=== PATIENT | female | born 2000 | race Caucasian/White ===

== ENCOUNTER 2020-01-02 22:00 | Outpatient (REF) | payer SELFPAY | END 2020-01-03 02:00 | disposition home or self-care (01) | LOC: EDREF 22:00 | DX: Z04.41 Encounter for examination and observation following alleged adult rape (principal) ==

== ENCOUNTER 2022-01-04 22:06 | Emergency (ER) | payer MEDICARE, MEDICAID, SELFPAY ==
[2022-01-04 22:06] VITALS: BP 104/74; PULSE 93; RESP 18; TEMP 36.2; O2SAT 98; BMI 31.6
[2022-01-04 22:08] VITALS: BP 104/74; PULSE 94; RESP 18; TEMP 37.1; O2SAT 98; BMI 31.6
--- NOTE | 2022-01-04 22:30 | EX.ED.DYSGE1 ---
HPI History of Present Illness Chief Complaint: General Illness Informant: patient Onset/Context/Timing Onset: Today Context: Gradual Onset Timing: Continuous Worsened by: Nothing Relieved by: Nothing Narrative Narrative: Patient presents with dizziness that began today. Patient states she was seen yesterday at another facility and was diagnosed with a urinary tract infection. Patient states she was given a prescription for amoxicillin. Patient states she took a dose of that today and started having some nausea and vomiting after that. Patient admits to some dizziness. Patient states she is unable to describe what her dizziness feels like. Patient states nothing makes it better and nothing makes it worse. Patient still has some dysuria. Patient denies any fevers or chills. Patient denies any headaches. [facility] Medical History ADHD (attention deficit hyperactivity disorder) Autism Hypotension Home Medications dextroamphetamine-amphetamine ER 50 mg capsule,3 bead,ext release 24hr 50 mg PO DAILY 12/09/20 [History Last Taken Unknown] escitalopram oxalate 10 mg tablet 10 mg PO DAILY 12/09/20 [History Last Taken Unknown] escitalopram oxalate 20 mg tablet 20 mg PO DAILY 12/09/20 [History Last Taken Unknown] guanfacine 4 mg tablet,extended release 24 hr 4 mg PO DAILY 12/09/20 [History Last Taken Unknown] ibuprofen 200 mg tablet 400 mg PO Q6H PRN tab 12/09/20 [History Last Taken Unknown] metoprolol tartrate 100 mg tablet 200 mg PO DAILY tab 12/09/20 [History Last Taken Unknown] perphenazine 8 mg tablet 4 mg PO QHS tab 12/09/20 [History Last Taken Unknown] trazodone 50 mg tablet 150 mg PO QHS tab 12/09/20 [History Last Taken Unknown] cephalexin 500 mg PO Q6 #12 capsule 01/04/22 [Rx Last Taken Unknown] Allergy/AdvReac Type Severity Reaction Status Date / Time No Known Allergies Allergy Verified 01/04/22 22:13 Family History (Updated 12/09/20 @ 08:59 by Sonam Morrell) Mother Hypertension Grandmother CVA (cerebral vascular accident) Diabetes Thyroid disorder Grandfather Hypertension Father Hypertension Diabetes Myocardial infarction Surgical History History of hernia repair Social History Smoking Status: Never smoker alcohol intake: never substance use type: does not use ROS ROS ED Constitutional Constitutional ED: Denies chills or fever(s) Eyes Eyes: Denies blurry vision or change in vision ENT ENT ED: Denies rhinorrhea or sore throat Cardiovascular Cardiovascular: Denies chest pain or palpitations Respiratory/Chest Respiratory/Chest: Denies cough or dyspnea Gastrointestinal Gastrointestinal: Reports nausea and vomiting Genitourinary Genitourinary ED: Reports dysuria; Denies hematuria Musculoskeletal Musculoskeletal: Denies back pain or neck pain Integumentary Denies abscess or rash Neurologic Neurologic: Denies headache(s) or weakness Allergic/Immunologic Allergic/Immunologic ED: Denies mouth swelling or urticaria EXAM Physical Exam Const Vital Signs: 01/04/22 22:06 01/04/22 22:08 01/04/22 22:13 Temperature 97.1 F L 98.7 F Temperature Source Temporal Temporal Pulse Rate 93 94 Pulse Rate [Lying] Pulse Rate [Sitting (for 1 minute prior to obtaining)] Pulse Rate [Standing (for 1 minute prior to obtaining)] Respiratory Rate 18 18 Respiratory Effort Normal Respiratory Pattern Normal Blood Pressure 104/74 104/74 Blood Pressure [Lying] Blood Pressure [Sitting (for 1 minute prior to obtaining)] Blood Pressure [Standing (for 1 minute prior to obtaining)] Blood Pressure Mean 84 84 Blood Pressure Mean [Lying] Blood Pressure Mean [Sitting (for 1 minute prior to obtaining)] Blood Pressure Mean [Standing (for 1 minute prior to obtaining)] Pulse Ox 98 98 Oxygen Delivery Method Room Air Room Air 01/04/22 23:05 Temperature Temperature Source Pulse Rate Pulse Rate [Lying] 81 Pulse Rate [Sitting (for 1 minute prior to obtaining)] 82 Pulse Rate [Standing (for 1 minute prior to obtaining)] 88 Respiratory Rate Respiratory Effort Respiratory Pattern Blood Pressure Blood Pressure [Lying] 128/108 H Blood Pressure [Sitting (for 1 minute prior to obtaining)] 108/73 Blood Pressure [Standing (for 1 minute prior to obtaining)] 103/82 H Blood Pressure Mean Blood Pressure Mean [Lying] 114 Blood Pressure Mean [Sitting (for 1 minute prior to obtaining)] 84 Blood Pressure Mean [Standing (for 1 minute prior to obtaining)] 89 Pulse Ox Oxygen Delivery Method Positive well nourished and well developed General Appearance ED: well developed HEENT Reports moist mucous membranes Neck supple and no JVD Resp normal respiratory effort and clear to auscultation bilaterally Cardio regular rate, regular rhythm and no murmurs GI normal to inspection, nondistended, normoactive bowel sounds Palpation: soft and tender suprapubic (Mild); Negative for guarding or rebound tenderness present Extremity normal to inspection General Extremety ED: Negative for edema or tenderness General Extremity: Negative for edema Neuro oriented x3, CN's II-XII intact bilaterally and no sensory deficits noted Sensorium / Orientation: alert Motor Exam: strength 5/5 throughout Psych mental status grossly normal Skin no rashes or lesions noted MDM MDM MDM Narrative Medical decision making narrative: Patient was given a dose of Zofran here. CBC was within normal limits. Basic metabolic profile showed a mild hypokalemia of 3.3. Urinalysis shows a leukocyte esterases of 100 with 5-10 white blood cells and 5-10 epithelial cells. There is 2+ bacteria. Urine culture was ordered. Patient is feeling better on reevaluation. Patient was given a prescription for Keflex. Patient was instructed to stop the amoxicillin. Patient was instructed to follow-up with her primary care physician in 5 to 7 days. Patient understood and was agreeable with the plan. All questions were answered. Lab Data Attestation: I reviewed the patient's lab results. Labs: Laboratory Results - last 24 hr 01/04/22 01/04/22 01/04/22 22:54 22:55 22:55 WBC 10.0 RBC 4.63 Hgb 13.9 Hct 41.1 MCV 88.8 MCH 30.0 MCHC 33.8 RDW Std Deviation 38.6 RDW Coeff of [place] 12.0 Plt Count 232 MPV 9.3 Immature Gran % (Auto) 0.200 Neut % (Auto) 69.1 Lymph % (Auto) 23.9 [place] % (Auto) 6.0 Eos % (Auto) 0.6 Baso % (Auto) 0.2 Absolute Neuts (auto) 6.9 Absolute Lymphs (auto) 2.38 Nucleated RBC % 0 Sodium 137 Potassium 3.3 L Chloride 103 Carbon Dioxide 29.0 Anion Gap 5 BUN 13 Creatinine 0.86 Estim Creat Clear Calc 115.33 Est GFR (MDRD) Af Amer 106 Est GFR (MDRD) Non-Af 88 BUN/Creatinine Ratio 15.2 Glucose 101 Calcium 8.8 Urine Color Yellow Urine Clarity Sl. Cloudy Urine pH 5.0 Ur Specific [place] 1.025 Urine Protein 15 H Urine Glucose (UA) Normal Urine Ketones 5 H Urine Occult Blood Negative Urine Nitrite Negative Urine Bilirubin 1 H Urine Urobilinogen 4 H Ur Leukocyte Esterase 100 H Urine RBC 0-5 SEEN Urine WBC 5-10 SEEN Ur Squamous Epith Cells 5-10 SEEN Urine Bacteria 2+ Urine Mucus 1+ Discharge Plan Triage Chief Complaint: General Illness Other Complaint: Dizziness ED Provider: Michael Mejias Dx/Rx/DC Orders Clinical Impression: Dizziness of unknown cause, Urinary tract infection Instructions: ED Dizziness, Uncertain Cause, ED CYSTITIS Female Adult Prescriptions: New cephalexin [cephalexin] 500 MG capsule 500 mg PO Q6 Qty: 12 RF: 0 Discontinued amoxicillin 875 mg tablet RF: 0 No Action escitalopram oxalate 10 mg tablet 10 mg PO DAILY RF: 0 perphenazine 8 mg tablet 4 mg PO QHS RF: 0 metoprolol tartrate 100 mg tablet 200 mg PO DAILY RF: 0 guanfacine [Intuniv ER] 4 mg tablet extended release 24 hr 4 mg PO DAILY RF: 0 trazodone 50 mg tablet 150 mg PO QHS RF: 0 Mydayis 50 mg capsule, ER triphasic 24 hr 50 mg PO DAILY RF: 0 escitalopram oxalate 20 mg tablet 20 mg PO DAILY RF: 0 ibuprofen 200 mg tablet 400 mg PO Q6H PRNRF: 0 Primary Care Provider: NOT,DEFINED Referrals: NOT,DEFINED [Primary Care Provider] - 5-7 Days Disposition Disposition: Home, Self Care
[2022-01-04 22:59] LABS: Absolute Lymphocyte Count 2.38 X10^3/uL (0.83-4.51); Absolute Neutrophil Count 6.9 X10^3/uL (2.0-7.7); Basophil# 0.02 X10^3/uL; Basophil% 0.2 % (0-1); Eosinophil# 0.06 X10^3/uL; Eosinophils% 0.6 % (0-5); Hematocrit 41.1 % (37-47); Hemoglobin 13.9 g/dL (12.0-15.0); Lymphocyte # 2.38 X10^3/ul (0.83-4.51); Lymphocyte % 23.9 % (19-41); Mean Corp Hgb Conc 33.8 g/dL (32-36); Mean Corpuscular Volume 88.8 fL (81-99); Mean Platelet Vol. 9.3 fl (6.2-12.0); NRBC Flagged by Analyzer 0 % (0-5); Neutrophil # 6.89 X10^3/uL (2.7-7.7); Neutrophil % 69.1 % (47-70); Platelet Count 232 K/mm3 (150-450); RBC Distribution Width SD 38.6 fl (35.1-43.9); Red Blood Count 4.63 M/mm3 (4.2-5.4)
[2022-01-04] MEDS: Ondansetron 4 MG/2 ML Vial IV (23:02)
[2022-01-04 23:05] VITALS: BP 103/82; BP 108/73; BP 128/108; PULSE 81; PULSE 82; PULSE 88
[2022-01-04 23:08] LABS: Color, Urine Yellow (Yellow); Glucose, Dipstick Normal (Normal); Ketone-Dipstick 5 mg/dl (Negative); Leukocyte Esterase-Dipstick 100 /ul (Negative); Nitrite-Dipstick Negative (Negative); Occult Blood-Urine Negative /ul (Negative); Protein-Dipstick 15 mg/dl (Negative); Specific Gravity, Urine 1.025 (1.002-1.030); Urine Clarity Sl. Cloudy (Clear); Urine Urobilinogen 4 mg/dl (Normal)
[2022-01-04 23:11] LABS: Urine Bilirubin Dipstick 1 mg/dL (Negative)
[2022-01-04 23:11] LABS: Anion Gap 5 (5-15); BUN 13 mg/dL (7-18); BUN/Creat Ratio 15.2 RATIO (10-20); Calcium,Total 8.8 mg/dL (8.5-10.1); Chloride 103 mmol/L (98-107); Creatinine, Serum 0.86 mg/dL (0.55-1.02); EST Glomerular Filtration Rate 88 mL/min (>60); Est Glom Filt Rate - Afr Amer 106 mL/min (>60); Estimated Creatinine Clearance 115.33 ml/min; Glucose 101 mg/dL (74-106); Potassium 3.3 mmol/L (3.5-5.1); Sodium Level 137 mmol/L (136-145)
[2022-01-04 23:19] LABS: Bacteria 2+ /hpf (None Seen); Red Blood Cells-Urine 0-5 SEEN /hpf (0-5); Squamous Epithelial Cells - UA 5-10 SEEN /hpf (5-10); White Blood Cells 5-10 SEEN /hpf (0-5)
[2022-01-04 23:20] LABS: Mucous, Urine 1+ /hpf (<or=2+)
== END 2022-01-04 23:40 | disposition home or self-care (01) ==
PROVIDERS: Emergency Provider Emergency Medicine; Visit Provider Emergency Medicine
DX: R42 Dizziness and giddiness (principal); E87.6 Hypokalemia; F84.0 Autistic disorder; F90.9 Attention-deficit hyperactivity disorder, unspecified type; Z79.899 Other long term (current) drug therapy; N39.0 Urinary tract infection, site not specified
CPT/HCPCS: 80048; 81001; 85025; 87086; 87088; 96374; 99285; A4216; J2405

== ENCOUNTER 2022-01-12 17:42 | Emergency (ER) | payer MEDICARE, MEDICAID, SELFPAY ==
[2022-01-12 17:44] VITALS: BP 107/55; PULSE 106; RESP 17; TEMP 36.9; O2SAT 96; BMI 29.8
[2022-01-12 17:51] VITALS: BP 107/55; PULSE 102; RESP 17; TEMP 36.9; O2SAT 96
[2022-01-12 18:22] LABS: Bacteria 0 SEEN /hpf (None Seen); Red Blood Cells-Urine 0 SEEN /hpf (0-5)
[2022-01-12 18:23] LABS: Color, Urine Yellow (Yellow); Glucose, Dipstick Normal (Normal); Ketone-Dipstick Negative (Negative); Leukocyte Esterase-Dipstick 100 /ul (Negative); Nitrite-Dipstick Negative (Negative); Occult Blood-Urine Negative /ul (Negative); Protein-Dipstick 15 mg/dl (Negative); Specific Gravity, Urine 1.025 (1.002-1.030); Urine Bilirubin Dipstick Negative (Negative); Urine Clarity Clear (Clear); Urine Urobilinogen Normal (Normal)
[2022-01-12 18:31] LABS: Mucous, Urine 2+ /hpf (<or=2+); Squamous Epithelial Cells - UA 0-5 SEEN /hpf (5-10); White Blood Cells 0-5 SEEN /hpf (0-5)
--- NOTE | 2022-01-12 18:42 | ED.VIS.FEGU ---
HPI HPI - Female History of Present Illness Chief Complaint: Complaint Informant: patient Narrative Narrative: Autistic patient presents by herself via EMS for dysuria, suprapubic pressure, urinary frequency for the past month. States she has been other hospitals but does not have any antibiotics. Also states for the last few days both of her ears have had muffled hearing and occasional earaches. She uses Flonase daily. She denies any fevers, chills, hematuria, , vaginal complaints, syncope or near syncope. PFSH PFS Medical History (Updated 01/12/22 @ 18:[address] Clement Salcedo MD) ADHD (attention deficit hyperactivity disorder) Autism Hypotension Oppositional defiant disorder Home Medications dextroamphetamine-amphetamine ER 50 mg capsule,3 bead,ext release 24hr 50 mg PO DAILY 12/09/20 [History Last Taken Unknown] escitalopram oxalate 20 mg tablet 20 mg PO DAILY 12/09/20 [History Last Taken Unknown] guanfacine 4 mg tablet,extended release 24 hr 4 mg PO DAILY 12/09/20 [History Last Taken Unknown] trazodone 50 mg tablet 150 mg PO QHS tab 12/09/20 [History Last Taken Unknown] buspirone 30 mg PO DAILY 01/12/22 [History Last Taken Unknown] Allergy/AdvReac Type Severity Reaction Status Date / Time No Known Allergies Allergy Verified 01/12/22 17:42 Family History (Updated 12/09/20 @ 08:59 by Sonam Morrell) Mother Hypertension Grandmother CVA (cerebral vascular accident) Diabetes Thyroid disorder Grandfather Hypertension Father Hypertension Diabetes Myocardial infarction Surgical History History of hernia repair Social History Smoking Status: Never smoker alcohol intake: never substance use type: does not use ROS ROS ED Constitutional Constitutional ED: Denies chills or fever(s) Eyes Eyes: Denies change in vision or diplopia ENT ENT ED: Reports as per HPI and ear pain bilateral; Denies rhinorrhea or sore throat Cardiovascular Cardiovascular: Denies chest pain or palpitations Respiratory/Chest Respiratory/Chest: Denies cough or dyspnea Gastrointestinal Gastrointestinal: Reports abdominal pain; Denies diarrhea, nausea or vomiting Genitourinary Genitourinary ED: Reports dysuria, urinary frequency and urinary urgency; Denies hematuria Musculoskeletal Musculoskeletal: Denies back pain or neck pain Integumentary Denies abscess or rash Neurologic Neurologic: Denies headache(s), paresthesias or weakness Psychiatric Psychiatric: Denies anxiety or suicidal thoughts EXAM Physical Exam Const Vital Signs: 01/12/22 17:44 01/12/22 17:51 Temperature 98.4 F 98.4 F Temperature Source Oral Oral Pulse Rate 106 H 102 H Respiratory Rate 17 17 Blood Pressure 107/55 L 107/55 L Blood Pressure Mean 72 72 Pulse Ox 96 96 Oxygen Delivery Method Room Air Room Air Positive well nourished and well developed General Appearance ED: well developed and NAD HEENT Reports EAC's normal, TM's clear, TM's normal bilaterally and moist mucous membranes HEENT Narrative: No sinus tenderness. No nasal turbinate edema or purulent discharge. Posterior pharynx and dentition normal. Tongue normal. normocephalic and atraumatic Tympanic Membrane ED: Yes TM's clear Eyes PERRL and EOMs intact bilaterally Neck full ROM and supple Resp normal respiratory effort and clear to auscultation bilaterally Cardio regular rate, regular rhythm and no murmurs GI non-distended GI Narrative: Very mildly tender suprapubic area only. Auscultation: normoactive bowel sounds Palpation: soft Back/Spine no CVA tenderness General Back: other FROM Extremity normal to inspection General Extremety ED: Negative for edema, pulses abnormal or tenderness General Extremity: Negative for edema or pulses abnormal Neuro oriented x3, CN's II-XII intact bilaterally and no sensory deficits noted Sensorium / Orientation: awake and alert Motor Exam: strength 5/5 throughout Skin no rashes or lesions noted and no wounds MDM MDM MDM Narrative Medical decision making narrative: Urine showing leukocyte esterase and no bacteria, no nitrite. Family called and said that she already was at another hospital and had a prescription sent for antibiotics to [facility] that she has not picked up yet. Upon looking, the patient has 2 prescriptions at 2 different pharmacies, 1 for amoxicillin and 1 for cephalexin, I recommend that she choose the one for her cephalexin, and since it is only for 3 days which is less than recommended, I am giving her some antibiotics here today. Her ear did not appear to be infected, she was given a dose of a decongestant here prior to discharge. Lab Data Attestation: I reviewed the patient's lab results. Labs: Laboratory Results - last 24 hr 01/12/22 18:03 Urine Color Yellow Urine Clarity Clear Urine pH 5.0 Ur Specific [place] 1.025 Urine Protein 15 H Urine Glucose (UA) Normal Urine Ketones Negative Urine Occult Blood Negative Urine Nitrite Negative Urine Bilirubin Negative Urine Urobilinogen Normal Ur Leukocyte Esterase 100 H Urine RBC 0 SEEN Urine WBC 0-5 SEEN Ur Squamous Epith Cells 0-5 SEEN Urine Bacteria 0 SEEN Urine Mucus 2+ Discharge Plan Triage Chief Complaint: Complaint ED Provider: Clement Salcedo Dx/Rx/DC Orders Clinical Impression: Earache symptoms in both ears, Acute cystitis without hematuria Instructions: ED Earache Without Infection (Adult), ED CYSTITIS Female Adult Prescriptions: No Action guanfacine [Intuniv ER] 4 mg tablet extended release 24 hr 4 mg PO DAILY RF: 0 trazodone 50 mg tablet 150 mg PO QHS RF: 0 Mydayis 50 mg capsule, ER triphasic 24 hr 50 mg PO DAILY RF: 0 escitalopram oxalate 20 mg tablet 20 mg PO DAILY RF: 0 buspirone 30 mg tablet 30 mg PO DAILY RF: 0 Primary Care Provider: Shaji Huang Referrals: Shaji Huang MD [Primary Care Provider] - 3-5 Days if not improving Activity Restrictions/Additional Instructions: You have a prescription at [facility]. It is cephalexin. 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 Get it and take it as prescribed until finished. Disposition Disposition: Home, Self Care
--- NOTE | 2022-01-12 19:15 | ED.RN ---
pt was informed of plan of care. pt refused to recieve any IM medication. explanation was provided to pt. she continued to refuse medication. while informing dr of patients choice patient exited the department. pt was found on er ramp and provided her d/c paperwork and education. pt refused to re-enter department for d/c vitals. homa yang rn [id number]
== END 2022-01-12 19:19 | disposition home or self-care (01) ==
PROVIDERS: Emergency Provider Emergency Medicine; PCP Pediatrics; Visit Provider Emergency Medicine
DX: N30.00 Acute cystitis without hematuria (principal); H92.03 Otalgia, bilateral; F90.9 Attention-deficit hyperactivity disorder, unspecified type; F84.0 Autistic disorder; F91.3 Oppositional defiant disorder; Z79.899 Other long term (current) drug therapy
CPT/HCPCS: 81001; 99284

== ENCOUNTER 2022-01-20 21:54 | Emergency (ER) | payer MEDICARE, MEDICAID, SELFPAY ==
[2022-01-20 21:55] VITALS: BP 125/92; PULSE 89; RESP 16; TEMP 36.4; O2SAT 98; BMI 27.8
--- NOTE | 2022-01-20 22:26 | EDS_ITS ---
HPI History of Present Illness Chief Complaint: General Illness Narrative Narrative: Patient is a 21-year-old female who states she used the bathroom this evening about 2 hours ago and with this had itching and thought she noticed some worms. She denies any fevers chills or abdominal pain she denies any recent antibiotics or travel outside the country or camping activities. Patient states that she does not think anyone else at home has the symptoms but she is concerned that she may have pinworms as this has happened in the past and therefore comes in for evaluation [facility] Medical History ADHD (attention deficit hyperactivity disorder) Autism Hypotension Oppositional defiant disorder Home Medications dextroamphetamine-amphetamine ER 50 mg capsule,3 bead,ext release 24hr 50 mg PO DAILY 12/09/20 [History Last Taken Unknown] escitalopram oxalate 20 mg tablet 20 mg PO DAILY 12/09/20 [History Last Taken Unknown] guanfacine 4 mg tablet,extended release 24 hr 4 mg PO DAILY 12/09/20 [History Last Taken Unknown] trazodone 50 mg tablet 150 mg PO QHS tab 12/09/20 [History Last Taken Unknown] buspirone 30 mg PO DAILY 01/12/22 [History Last Taken Unknown] Allergy/AdvReac Type Severity Reaction Status Date / Time No Known Allergies Allergy Verified 01/20/22 21:57 Family History (Updated 12/09/20 @ 08:59 by Sonam Morrell) Mother Hypertension Grandmother CVA (cerebral vascular accident) Diabetes Thyroid disorder Grandfather Hypertension Father Hypertension Diabetes Myocardial infarction Surgical History History of hernia repair Social History Smoking Status: Never smoker alcohol intake: never substance use type: does not use ROS ROS ED Constitutional Constitutional ED: Denies chills or fever(s) ENT ENT ED: Denies sore throat Cardiovascular Cardiovascular: Denies chest pain Respiratory/Chest Respiratory/Chest: Denies cough or dyspnea Gastrointestinal Gastrointestinal: Reports other Details: Positive for rectal itching ; Denies abdominal pain, diarrhea, nausea or vomiting Genitourinary Genitourinary ED: Denies dysuria Musculoskeletal Musculoskeletal: Denies myalgias Integumentary Denies rash Neurologic Neurologic: Denies headache(s) Hematologic/Lymphatic Hematologic/Lymphatic: Denies easy bleeding or easy bruising EXAM Physical Exam Const Vital Signs: 01/20/22 21:55 Temperature 97.6 F L Temperature Source Temporal Pulse Rate 89 Respiratory Rate 16 Blood Pressure 125/92 H Blood Pressure Mean 103 Pulse Ox 98 Oxygen Delivery Method Room Air Positive well nourished and well developed General Appearance ED: well developed Eyes PERRL and EOMs intact bilaterally Neck supple Resp normal respiratory effort and clear to auscultation bilaterally Cardio regular rate and regular rhythm GI normal to inspection, nondistended, normoactive bowel sounds, non-tender, non- distended and no masses Auscultation: normoactive bowel sounds Palpation: soft Narrative: Rectal exam shows no external hemorrhoids or anal fissure. Scotch tape test does not reveal any obvious ova or worms Extremity normal to inspection Neuro oriented x3 and CN's II-XII intact bilaterally Sensorium / Orientation: alert Motor Exam: strength 5/5 throughout Psych Psych Narrative: Patient has a flat affect Skin no rashes or lesions noted MDM MDM MDM Narrative Medical decision making narrative: Patient presented to the ER with stable vitals and a soft nonsurgical abdomen. She reported rectal itching and reportedly worms with a bowel movement which is concerning for pinworm infection. Scotch tape test at this time did not reveal any obvious ova or parasite. We discussed obtaining a stool sample patient cannot use the restroom at this time. Therefore patient will be discharged as her exam is nonfocal and vitals stable. She will be advised to follow-up with her family doctor to discuss an outpatient stool study sample if symptoms persist. She also be advised to do [id number] Richard's pinworm medication secondary to report of worms in her recent bowel movement and itching per rectum. Discharge Plan Triage Chief Complaint: General Illness ED Provider: Cole Gonsales Dx/Rx/DC Orders Clinical Impression: History of pinworm infection, Autism Prescriptions: No Action guanfacine [Intuniv ER] 4 mg tablet extended release 24 hr 4 mg PO DAILY RF: 0 trazodone 50 mg tablet 150 mg PO QHS RF: 0 Mydayis 50 mg capsule, ER triphasic 24 hr 50 mg PO DAILY RF: 0 escitalopram oxalate 20 mg tablet 20 mg PO DAILY RF: 0 buspirone 30 mg tablet 30 mg PO DAILY RF: 0 Primary Care Provider: Shaji Huang Referrals: Shaji Huang MD [Primary Care Provider] - Activity Restrictions/Additional Instructions: Please talk to your family doctor about obtaining a stool study for ova and parasites if your symptoms persist. 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 Disposition Disposition: Home, Self Care
== END 2022-01-20 22:52 | disposition home or self-care (01) ==
PROVIDERS: Emergency Provider Emergency Medicine; PCP Pediatrics; Visit Provider Emergency Medicine
DX: B80 Enterobiasis (principal); F84.0 Autistic disorder; F90.9 Attention-deficit hyperactivity disorder, unspecified type; F91.3 Oppositional defiant disorder; Z79.899 Other long term (current) drug therapy
CPT/HCPCS: 99282

== ENCOUNTER 2022-01-23 16:24 | Emergency (ER) | payer MEDICARE, MEDICAID, SELFPAY ==
[2022-01-23 16:25] VITALS: PULSE 103; RESP 16; TEMP 36.2; O2SAT 94; BMI 29.8
[2022-01-23 16:27] VITALS: BP 75/63
--- NOTE | 2022-01-23 16:33 | RAD_ITS ---
STUDY: X-RAY - LEFT TIBIA AND FIBULA REASON FOR EXAM: Female, 21 years old. fall TECHNIQUE: 2 view(s) of the tibia and fibula were obtained. COMPARISON: None. FINDINGS: Normal visualized tibia. Normal visualized fibula. The soft tissue structures are unremarkable. RAD/Tibia & Fibula 2 Views IMPRESSION: Normal x-ray examination of the tibia and fibula. Electronically Signed: Chirag James MD at 17:48 EDT ,
--- NOTE | 2022-01-23 16:34 | EX.ED.DYSGE1 ---
HPI <LANDY Sams - Last Filed: 01/23/22 16:49> History of Present Illness Chief Complaint: Lower Extremity Injury Narrative Narrative: 21-year-old female history of autism was walking in her room, she slipped on some close bending her leg backwards striking her tibia, fibula on the stairs. Patient states that the pain has been getting worse. She is here for evaluation. She denies any other injury. States her entire leg hurts however it is worse mostly in the [place] area. Denies any blood thinners. Denies any other issues PFSH <LANDY Sams - Last Filed: 01/23/22 16:49> PFS Medical History ADHD (attention deficit hyperactivity disorder) Autism Hypotension Oppositional defiant disorder Home Medications dextroamphetamine-amphetamine ER 50 mg capsule,3 bead,ext release 24hr 50 mg PO DAILY 12/09/20 [History Last Taken Unknown] escitalopram oxalate 20 mg tablet 20 mg PO DAILY 12/09/20 [History Last Taken Unknown] guanfacine 4 mg tablet,extended release 24 hr 4 mg PO DAILY 12/09/20 [History Last Taken Unknown] trazodone 50 mg tablet 150 mg PO QHS tab 12/09/20 [History Last Taken Unknown] buspirone 30 mg PO DAILY 01/12/22 [History Last Taken Unknown] Allergy/AdvReac Type Severity Reaction Status Date / Time No Known Allergies Allergy Verified 01/23/22 16:26 Family History (Updated 12/09/20 @ 08:59 by Sonam Morrell) Mother Hypertension Grandmother CVA (cerebral vascular accident) Diabetes Thyroid disorder Grandfather Hypertension Father Hypertension Diabetes Myocardial infarction Surgical History History of hernia repair Social History Smoking Status: Never smoker alcohol intake: never substance use type: does not use ROS <LANDY Sams - Last Filed: 01/23/22 16:49> ROS ED ROS Narrative Constitutional: Negative for fever, chills, weight loss, weakness Eyes: Negative for vision loss, vision change, double vision ENT: Negative for any sore throat, ear pain, congestion Cardiovascular: Negative for any chest pain, tightness, palpitations Respiratory: Negative for any cough, sputum production, hemoptysis, dyspnea, dyspnea on exertion, orthopnea Gastrointestinal: Negative for any abdominal pain, nausea, vomiting, diarrhea, constipation, blood in stool, blood in vomit : Negative for any urinary frequency, dysuria, retention, blood in urine Muscle skeletal: Negative for any muscle joint pain, stiffness, myalgias, arthralgias, neck pain, back pain. Positive left leg pain Neurological: Negative for any headache, syncope, numbness or tingling, dizziness Skin: Negative for any rashes, lumps, itching, abrasions, lacerations Psychiatric: Negative for any depression, anxiety, stress, suicidal ideation, homicidal ideation Hematologic: Negative for any easy bruising, excessive bruising, easy bleeding Allergies: Negative for any eczema, hives, rash EXAM <SAVI SamsC - Last Filed: 01/23/22 16:49> Physical Exam Narrative Exam Narrative: Vital signs reviewed. Extremities: No peripheral edema, no signs of gross trauma or deformity. Active full range of motion of all extremities. Patient has full range of motion of the left leg. Patient will flex and extend. Patient has pain to palpation to the anterior proximal tibia. Negative for any ecchymosis. Negative for any deformity. Negative for any pain to the knee. Knee joint is intact. Able to flex and extend the foot against resistance. Neuro: Cranial nerves II through XII intact, no focal neurological deficits. Skin: Clean dry and intact with no rash, purpura, petechiae, vesicles or pustules. Backs/flank: No CVA tenderness, no midline spinal tenderness, no deformity. Psych: Normal mood and affect. No SI, HI or acute psychosis. Const Vital Signs: 01/23/22 16:25 01/23/22 16:27 Temperature 97.2 F L Temperature Source Temporal Pulse Rate 103 H Respiratory Rate 16 Blood Pressure 75/63 L Blood Pressure Mean 67 Pulse Ox 94 Oxygen Delivery Method Room Air Positive well nourished and well developed General Appearance ED: well developed <Dr. Laurie Petit DO - Last Filed: 01/23/22 16:49> Physical Exam Const Vital Signs: 01/23/22 16:25 01/23/22 16:27 Temperature 97.2 F L Temperature Source Temporal Pulse Rate 103 H Respiratory Rate 16 Blood Pressure 75/63 L Blood Pressure Mean 67 Pulse Ox 94 Oxygen Delivery Method Room Air [facility] <LANDY Sams - Last Filed: 01/23/22 16:49> [facility] Narrative Medical decision making narrative: Patient appears well, patient appears nontoxic, vital signs stable. Patient presents to the emergency department with complaints of left leg pain after a fall. Patient's physical examination is consistent for a contusion to the left tibia, fibula. Patient did receive x-rays of this which were read by ER attending is negative for any acute osseous abnormality. Patient is ambulatory. Patient's vital signs are stable. They were retaken. Patient is in no distress. Patient continue to take Tylenol, ibuprofen for pain. Instructed to return for any worsening symptoms. Patient to follow-up with her PCP. Crutches will be given upon request <Dr. Laurie Petit DO - Last Filed: 01/23/22 16:49> [facility] Narrative Medical decision making narrative: I have personally performed a face to face assessment of the patient and have reviewed the PATTY Note. I performed a substantive portion of the visit including all aspects of the following. My sandra findings include: History is [patient presents to the emergency department stating that she fell down some steps and injured her left leg. Patient cannot tell me how many steps she went down. Steps were wooden. Denies head or neck pain. Denies chest pain or abdominal pain. Patient states it hurts to bear weight. She states most of her pain is over the anterior tibia.] Exam is [HEENT-PERRLA, EOMI. Cranial nerves II through XII grossly intact. TMs clear. Mucous membranes moist. No adenopathy. Cardiovascular-regular rate and rhythm without murmur or ectopy Lungs-clear to auscultation, chest wall stable without crepitus or subcu emphysema Abdomen-normoactive bowel sounds, soft, nontender, no rebound or rigidity, no peritoneal signs. Extremities-intact ?4, normal range of motion, normal pulses. Left leg-no tenderness over the femur and no deformity. Patient has some mild tenderness over the mid anterior tibia. There is no ecchymosis or bruising noted. She has normal flexion at the knee. No pain at the ankle or the foot on exam. She is neurovascular intact.] Medical Decison Making [2 view x-rays of left tib-fib obtained interpreted by myself as no acute fractures. Official report from radiology will be pending. Patient was offered crutches for comfort which she wanted. Patient advised use ibuprofen or Tylenol for discomfort. She is to use ice to the area. I suspect she has a contusion to her left lower leg.] Other additions or changes: [None] Discharge Plan Triage Chief Complaint: Lower Extremity Injury ED Midlevel Provider: Misael Gale ED Provider: Laurie Petit Dx/Rx/DC Orders Clinical Impression: Contusion of left leg, Fall Instructions: Bruises (Contusions) Prescriptions: No Action guanfacine [Intuniv ER] 4 mg tablet extended release 24 hr 4 mg PO DAILY RF: 0 trazodone 50 mg tablet 150 mg PO QHS RF: 0 Mydayis 50 mg capsule, ER triphasic 24 hr 50 mg PO DAILY RF: 0 escitalopram oxalate 20 mg tablet 20 mg PO DAILY RF: 0 buspirone 30 mg tablet 30 mg PO DAILY RF: 0 Primary Care Provider: Shaji Huang Referrals: Shaji Huang MD [Primary Care Provider] - Activity Restrictions/Additional Instructions: You may take ibuprofen, Tylenol for pain. Use crutches for comfort Print Language: Latvian Disposition Disposition: Home, Self Care
[2022-01-23 17:08] VITALS: PULSE 86; RESP 15; O2SAT 99
== END 2022-01-23 17:09 | disposition home or self-care (01) ==
PROVIDERS: Emergency Provider Emergency Medicine; PCP Pediatrics; Visit Provider Emergency Medicine
DX: S80.12XA Contusion of left lower leg, initial encounter (principal); F84.0 Autistic disorder; W01.198A Fall on same level from slipping, tripping and stumbling with subsequent striking against other object, initial encounter; Y93.01 Activity, walking, marching and hiking; F90.9 Attention-deficit hyperactivity disorder, unspecified type; F91.3 Oppositional defiant disorder; Z79.899 Other long term (current) drug therapy
CPT/HCPCS: 73590; 99283